=== PATIENT | female | born 1965 | race Hispanic/Latino ===

== ENCOUNTER 2018-03-07 09:32 | Observation (INO) | payer OTHER ==
[2018-03-05 16:08] LABS: BASOPHILS # (AUTO) 0.1 (0.0-0.1); BASOPHILS % 0.7 % (0.0-1.0); EOSINOPHILS # (AUTO) 0.1 (0.0-0.4); EOSINOPHILS % 1.8 % (0.0-6.0); HEMATOCRIT 40.6 % (34.2-44.1); HEMOGLOBIN 14.1 g/dL (12.0-16.0); LYMPHOCYTES # (AUTO) 3.4 (1.0-3.2); LYMPHOCYTES % 46.4 % (18.0-39.1); MEAN CORPUSCULAR HEMOGLOBIN 32.1 pg (28-32); MEAN CORPUSCULAR HGB CONC 34.7 g/dL (31-35); MEAN CORPUSCULAR VOLUME 92.5 fL (81-99); MONOCYTES # (AUTO) 0.5 (0.2-0.8); MONOCYTES % 6.3 % (4.4-11.3); NEUTROPHILS # (AUTO) 3.3 (2.1-6.9); NEUTROPHILS % 44.7 % (38.7-80.0); PLATELET COUNT 331 x10e3/uL (140-360); RED BLOOD COUNT 4.39 x10e6/uL (3.6-5.1); RED CELL DISTRIBUTION WIDTH 12.7 % (11.7-14.4)
--- NOTE | 2018-03-05 16:08 | Diagnostic Imaging Report ---
PROCEDURE: Frontal and lateral views of the chest. COMPARISON: None. INDICATIONS: PRE-OPERATIVE CHEST X-RAY FOR CERVICAL SPINE SURGERY FINDINGS: Lines/tubes: None. Lungs: The lungs are well inflated and clear. There is no evidence of pneumonia or pulmonary edema. Pleura: There is no pleural effusion or pneumothorax. Heart and mediastinum: The heart and the mediastinum are normal. Bones: No acute bony abnormality. IMPRESSION: 1. No acute cardiopulmonary disease. Dictated by: Emiliano Bell M.D. on 03/05/2018 at 16:09 Electronically approved by: Emiliano Bell M.D. on 03/05/2018 at 16:09
[2018-03-05 16:17] LABS: INR 1.07; PROTHROMBIN TIME 13.1 seconds (11.9-14.5)
[2018-03-05 16:18] LABS: PARTIAL THROMBOPLASTIN TIME 26.1 seconds (23.8-35.5)
[2018-03-05 16:24] LABS: ANION GAP 14.6 mmol/L (8-16); BLOOD UREA NITROGEN 14 mg/dL (7-26); BUN/CREATININE RATIO 17 (6-25); CALCIUM 9.6 mg/dL (8.4-10.2); CARBON DIOXIDE 25 mmol/L (22-29); CHLORIDE 104 mmol/L (98-107); CREATININE, SERUM 0.82 mg/dL (0.57-1.11); EST GLOMERULAR FILTRATION RATE > 60 ML/MIN (60-); GLUCOSE 116 mg/dL (74-118); POTASSIUM 3.6 mmol/L (3.5-5.1); SODIUM 140 mmol/L (136-145)
[~2018-03-07] VITALS: Ht 157.5 cm; Wt 85.8 kg
[~2018-03-07 09:32] MED LIST: AMLODIPINE BESYL5 MG PO; AMLODIPINE PO; LIDOCAINE HCL (LTA) 4 ML SOLN ONE; TYLENOL WITH C1 EACH PO
--- OUTSIDE RECORDS SUMMARY | 2018-03-07 09:34 | XMS REPORT ---
Author Author [facility] Address Unknown Phone Unavailable Care Team Providers Care Lobbyist Name Role Phone STEFANY MIRANDA Unavailable Unavailable Problems This patient has no known problems. Allergies, Adverse Reactions, Alerts This patient has no known allergies or adverse reactions. Medications This patient has no known medications. Results Test Description Test Time Test Comments Text Results Atomic Results Result Comments CHEST 2 VIEWS [place] [address] Patient Name: ANGELICA THOMPSON MR #: [id number] : 1965 Age/Sex: 53/F Req #: [id number] Adm Physician: Ordered by: STEFANY MIRANDA MD Report #: [id number] Location: OR Room/Bed: Procedure: [id number] DX/CHEST 2 VIEWS Exam Date: 03/05/18 Exam Time: 1540 REPORT STATUS: Signed PROCEDURE: Frontal and lateral views of the chest. COMPARISON: None. INDICATIONS: PRE- OPERATIVE CHEST X-RAY FOR CERVICAL SPINE SURGERY FINDINGS: Lines/ tubes: None. Lungs: The lungs are well inflated and clear. There is no evidence of pneumonia or pulmonary edema. Pleura: There is no pleural effusion or pneumothorax. Heart and mediastinum: The heart and the mediastinum are normal. Bones: No acute bony abnormality. IMPRESSION: 1. No acute cardiopulmonary disease. Dictated by: Jazlyn Bell M.D. on 03/05/2018 at 16:09 Electronically approved by: Jazlyn Bell M.D. on 03/05/2018 at 16:09 Dictated By: JAZLYN BELL MD [id number] Transcribed By: MALVIN on 03/05/18 1610 COPY TO: STEFANY MIRANDA MD
[2018-03-07] MEDS ORDERED: CEFAZOLIN SOD 1 GM VIAL ONE (10:08)
[2018-03-07] MEDS ORDERED: THROMBIN FOR SOLN 5,000 UNIT VIAL ONE (10:09)
[2018-03-07] MEDS ORDERED: GELATIN SPONGE SZ 100 ONE (10:09)
[2018-03-07] MEDS ORDERED: BACITRACIN 50,000 UNIT VIAL ONE (10:09)
[2018-03-07] MEDS ORDERED: BUPIVACAINE 0.5%/EPI 30 ML SDV INJ ONE (10:09)
[2018-03-07] MEDS ORDERED: LACTATED RINGER'S 1,000 ML IV SCH (12:51)
[2018-03-07] MEDS ORDERED: MORPHINE SULFATE 5 MG/ML VIAL IM PRN (13:00)
[2018-03-07] MEDS ORDERED: ACETAMINOPHEN 325 MG TAB PO PRN (13:00)
[2018-03-07] MEDS ORDERED: CARISOPRODOL 350 MG TAB PO PRN (13:00)
[2018-03-07] MEDS ORDERED: ZOLPIDEM TARTRATE 5 MG TAB PO PRN (13:00)
[2018-03-07] MEDS ORDERED: MAGNESIUM/ALUMINUM/SIMETHICONE 30 ML UDC PO PRN (13:00)
[2018-03-07] MEDS ORDERED: ONDANSETRON HCL INJ 2 MG/ML VIAL IV PRN (13:00)
[2018-03-07] MEDS ORDERED: OXYCODONE/ACETAMINOPHEN 5-325 1 EACH TABLET PO PRN (13:00)
[2018-03-07] MEDS ORDERED: PROMETHAZINE HCL (IM) 25 MG/ML VIAL IM PRN (13:00)
[2018-03-07] MEDS ORDERED: FENTANYL CITRATE/PF 100MCG/2 ML INJ ONE ×2 (13:15→18:01)
[2018-03-07] MEDS ORDERED: MORPHINE SULFATE 2 MG/ML SYR IM PRN (13:45)
[2018-03-07] MEDS ORDERED: CEFAZOLIN SOD 1 GM/NS 50ML 50 ML IV SCH (14:00)
[2018-03-07 14:08] VITALS: BP 140/84
[2018-03-07] MEDS: HYDROMORPHONE 2MG/ML INJ IV PRN ×2 (14:37→23:07)
[2018-03-07] MEDS: CEFAZOLIN SOD 1 GM VIAL IV SCH ×2 (14:37→21:01)
--- NOTE | 2018-03-07 14:37 | Operative Report ---
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 POSTOPERATIVE DIAGNOSIS: C6-7 disk herniation and spondylosis with radiculopathy, M50.123. PROCEDURES 1. C6-7 anterior cervical diskectomy, microsurgical osteophyte resection and allograft fusion, 97983. 2. Preparation of [employer] cortical cancellous allograft, 30312. 3. C6-7 anterior cervical plating with Synthes ZPN plate, 43866. ANESTHESIA: General. INDICATIONS: Patient is a 53-year-old woman who presents with neck pain and left C7 radiculopathy and was taken to the operating room for anterior cervical decompression and fusion at C6-7. DETAILS OF PROCEDURE: After induction of general anesthesia, the patient was placed on the operating table in the supine position. The right side the neck was prepped and draped in a sterile fashion. The fluoroscopic C-arm was positioned in cross-table lateral orientation. A transverse incision was created on the right side of the neck superimposed on the C6-7 disk space as determined by fluoroscopy. The platysma was divided in line with the incision. A subplatysmal dissection was carried out. An avascular plane of dissection was developed medial to the sternocleidomastoid muscle and was followed medial to the carotid sheath to the anterior border of the cervical spine. The deep cervical fascia was opened. The esophagus was retracted to the left. The attachments of the longus coli muscles to the anterolateral aspects of the vertebral bodies of C6 and C7 were divided. The anterior longitudinal ligament was resected. [place] posts were inserted into C6 and C7. The [place] distractor was used to distract the disk space. The anterior annulus of the disk was incised with a #11 blade. The contents of the disk were thoroughly evacuated with angled curets and pituitary rongeurs. The posterior osteophytes were meticulously drilled with a 2-mm cutting bur on a high-speed drill until they were completely removed. The posterior annulus of the disk, herniated disk material and the posterior longitudinal ligament were resected layer by layer until the dura was fully exposed and decompressed. The medial aspects of uncinate processes were resected bilaterally to further expose and decompress the origins of the corresponding C7 nerve roots. After satisfactory decompression had been achieved, the endplates were prepared for fusion. The disk space was sized and found to be 8 mm in height. A piece of MTF cortical cancellous allograft measuring 8 mm was selected, prepared in saline and loaded onto a Synthes ZPN plate. The construct was then inserted into the C6-7 disk space under distraction and fluoroscopic guidance and tamped in place until the anterior margin of the plate was flush with the anterior margin of the vertebral bodies. The plate was then screwed to the endplates of C6 and C7 with 2 pairs of 14-mm screws. All screws were locked. An excellent construct was obtained. The wound was copiously irrigated with Bacitracin solution. Meticulous hemostasis was secured. Retractor was removed. The platysma was closed with 3-0 Vicryl sutures. The skin was closed with 4-0 Monocryl sutures in subcuticular fashion. Steri-Strips and dressing were applied. The patient was awakened, extubated and taken to the postanesthesia care unit in stable condition. No intraoperative complications were encountered. Estimated blood loss was 10 mL. Job#: [id number]
[2018-03-07 14:38] VITALS: BP 140/84
[2018-03-07] MEDS ORDERED: PROPOFOL IV EMULSION 10 MG/ML 20 ML VIAL ONE (17:49)
[2018-03-07] MEDS ORDERED: ROCURONIUM BROMIDE 10 MG/ML 5ML VIAL ONE (17:49)
[2018-03-07] MEDS ORDERED: ONDANSETRON HCL INJ 2 MG/ML VIAL ONE (17:49)
[2018-03-07] MEDS ORDERED: SEVOFLURANE INHAL SOLN 250 ML PEN BTL ONE (17:49)
[2018-03-07] MEDS ORDERED: LIDOCAINE HCL 2% LOCAL INJ 5 ML SDV VIAL INJ ONE (17:49)
[2018-03-07] MEDS ORDERED: DEXAMETHASONE SOD PHOS INJ 4 MG/ML VIAL ONE (17:49)
[2018-03-07] MEDS ORDERED: MIDAZOLAM HCL 2 MG/2 ML VIAL ONE (18:01)
[2018-03-07 19:25] VITALS: BP 121/75
[2018-03-07 20:00] VITALS: BP 121/75
[2018-03-07] MEDS: ONDANSETRON HCL 4 MG ORAL DISINTEGRATING TAB PO PRN (23:07)
[2018-03-08 00:15] VITALS: BP 127/71
[2018-03-08 05:20] VITALS: BP 138/74
[2018-03-08] MEDS: CEFAZOLIN SOD 1 GM VIAL IV SCH (05:21)
--- NOTE | 2018-03-08 07:08 | Diagnostic Imaging Report ---
PROCEDURE: X-RAY CERVICAL SPINE, TWO VIEWS COMPARISON:None. INDICATIONS:Not provided. FINDINGS: See conclusion. CONCLUSION: AP and lateral views of the cervical spine from the skull base to the bottom of the C7 show per surgical changes related to anterior fusion/disc spacer placement at C6-C7. Hardware is appropriately positioned. The visualized vertebral bodies are well-aligned. There is mild pre-vertebral soft-tissue swelling consistent with recent surgery. Dictated by: Abraham Washburn M.D. on 03/08/2018 at 7:09 Electronically approved by: Abraham Washburn M.D. on 03/08/2018 at 7:09
[2018-03-08] MEDS: ONDANSETRON HCL 4 MG ORAL DISINTEGRATING TAB PO PRN (07:12)
[2018-03-08] MEDS ORDERED: NORCO 7.5-3251 EACH PO ×2 (08:20→08:21)
[2018-03-08 08:26] VITALS: BP 135/86
[2018-03-08] MEDS ORDERED: AMLODIPINE BESYLATE 5 MG TAB PO SCH (09:00)
== END 2018-03-08 08:52 | disposition home or self-care (01) ==
LOC: OR 09:32 → IMCU 13:37
PROVIDERS: ADMIT Neurological Surgery; ATTEND Neurological Surgery
DX: M50.123 Cervical disc disorder at C6-C7 level with radiculopathy (principal); I10 Essential (primary) hypertension
CPT/HCPCS: 20931; 22551; 22845; 36415; 71046; 72040; 77003; 80048; 85025; 85610; 85730; 86850; 86900; 88304; 93005; 96374; 96375; 96376; C1713 ×2; C9359; G0378 ×2; J0690 ×2; J1100; J1170; J2001; J2250; J2405

== ENCOUNTER → 2021-02-09 | Outpatient (CLI) | payer OTHER ==
[~2021-02-09] MED LIST changes: +COVID-19 VACC, MRNA(MODERNA)/PF 100 MCG/0.5 ML VIAL IM ONE; -LIDOCAINE HCL (LTA) 4 ML SOLN ONE; +NORCO 7.5-3251 EACH PO
== END | disposition home or self-care (01) ==
LOC: VACCPMC 08:49
DX: Z23 Encounter for immunization (principal); Z20.822 Contact with and (suspected) exposure to COVID-19
CPT/HCPCS: 91301

== ENCOUNTER → 2021-03-09 | Outpatient (CLI) | payer OTHER | END | disposition home or self-care (01) | LOC: VACCPMC 12:00 | DX: Z23 Encounter for immunization (principal); Z20.822 Contact with and (suspected) exposure to COVID-19 | CPT/HCPCS: 91301 ==